=== PATIENT | male | born 1995 | race Caucasian/White ===

== ENCOUNTER 2016-06-11 21:14 | Emergency (ER) | payer MEDICAID | END 2016-06-11 22:54 | disposition home or self-care (01) | LOC: D.ER 21:14 | DX: K08.89 Other specified disorders of teeth and supporting structures (principal); F17.200 Nicotine dependence, unspecified, uncomplicated ==

== ENCOUNTER 2017-08-30 19:45 | Emergency (ER) | payer MEDICAID ==
[~2017-08-30] VITALS: Ht 177.8 cm; Wt 74.8 kg
[2017-08-30 19:52] VITALS: Ht 177.8 cm; Wt 74.8 kg
[2017-08-30] MEDS ORDERED: ZOLOFT25 MG PO (19:53)
[2017-08-30 20:08] LABS: APPEARANCE CLEAR (CLEAR); BILIRUBIN 1+ (NEGATIVE); COLOR DK YELLOW (YELLOW); GLUCOSE NEGATIVE (NEGATIVE); KETONE NEGATIVE (NEGATIVE); NITRITE NEGATIVE (NEGATIVE); PROTEIN TRACE mg/dL (NEGATIVE)
[2017-08-30 20:12] LABS: BACTERIA FEW /hpf (NONE SEEN); EPITHELIAL CELLS 0-5 /hpf (0-5); MUCUS >1+ /lpf (NONE SEEN); WHITE CELLS - URINE 0-5 /hpf (0-5)
[2017-08-30] MEDS ORDERED: VALTREX1000 MG PO (21:29)
[2017-08-30] MEDS ORDERED: ANUSOL-HC 2.5%30 GM RC (21:29)
[2017-08-30 21:45] VITALS: BP 123/79
[2017-09-04 08:08] LABS: CHLAMYDIA TRACHOMATIS, NAA Negative (Negative)
== END 2017-08-30 21:45 | disposition home or self-care (01) ==
LOC: D.ER 19:45
PROVIDERS: Family Medicine
DX: L98.494 Non-pressure chronic ulcer of skin of other sites with necrosis of bone (principal); K62.6 Ulcer of anus and rectum; F17.200 Nicotine dependence, unspecified, uncomplicated